=== PATIENT | female | born 1995 | race African-American/Black ===

== ENCOUNTER 2019-11-18 16:11 | Emergency (ER) | payer OTHER ==
[~2019-11-18] VITALS: Ht 172.7 cm; Wt 111.6 kg
[2019-11-18 17:32] LABS: Urine Bacteria MOD /hpf (None Seen); Urine Blood Negative /uL (Negative); Urine Mucus FEW (None Seen); Urine Specific Gravity 1.025 (1.001-1.035); Urine WBC 26 /hpf (0 - 5)
[2019-11-18 18:06] VITALS: BP 124/64
== END 2019-11-18 18:08 | disposition home or self-care (01) ==
LOC: ER 16:11
DX: N64.4 Mastodynia (principal); N39.0 Urinary tract infection, site not specified; Z32.02 Encounter for pregnancy test, result negative
CPT/HCPCS: 36415; 81001; 81025; 84702